=== PATIENT | female | born 1980 | race Caucasian/White ===

== ENCOUNTER 2024-01-05 16:41 | Emergency (ER) | payer MEDICARE ==
[2024-01-05 17:03] VITALS: TEMP 97.8
[2024-01-05 17:29] LABS: Absolute Neutrophil Ct (ANC) 4.14 x10^3/uL (1.56-6.13); BASOPHIL % 0.6 % (0.1-1.2); Basophil (Absolute #) 0.04 x10^3/uL (0.01-0.08); Eosinophil % 1.4 % (0.7-5.8); Eosinophil (Absolute #) 0.09 x10^3/uL (0.04-0.36); Hematocrit 33.1 % (34.1-44.9); Hemoglobin 10.1 g/dL (11.2-15.7); IMMATURE GRAN # 0.01 x10^3u/L (0.001-0.031); IMMATURE GRAN % 0.2 % (0.001-0.429); Lymphocyte (Absolute #) 1.67 x10^3/uL (1.18-3.74); Lymphocytes % 26.4 % (19.3-51.7); Mean Cell Volume 75.9 fL (79.4-94.8); Mean Corpuscular Hemoglobin 23.2 pg (25.6-32.2); Mean Corpuscular Hgb Concent. 30.5 g/dL (32.2-35.5); Monocyte (Absolute #) 0.37 x10^3/uL (0.24-0.86); Monocytes % 5.9 % (4.7-12.5); Neutrophil % 65.5 % (34.0-71.1); Platelet Count 260 x10^3/uL (182-369); Red Blood Count 4.36 x10^6/uL (3.93-5.22); Red Cell Distribution Width 15.9 % (11.7-14.4); White Blood Count 6.3 x10^3/uL (3.98-10.04)
[2024-01-05 17:33] LABS: HCG URINE TEST NEGATIVE (NEGATIVE)
--- NOTE | 2024-01-05 17:34 | ERPHSYRPT ---
- History of Present Illness Source: patient, family Exam Limitations: no limitations Patient Subjective Stated Complaint: Suicidal Ideation/Depression. Patient seen today for the first time as a new patient by INSPECTOR BICYCLE at [facility] for right hip pain. Patient filled out her initial depression screening there and her answers caused some concern with the INSPECTOR BICYCLE. Patient admitted to suicidal idea tion there. Patient left there and came to the ER here for evaluation on the recommendation of the INSPECTOR BICYCLE at [facility]. Triage Nursing Assessment: Patient ambulated back to ER without difficulties. She is alert and oriented; cooperative. Flat affect. NO SOB. Skin tone normal. Hx Tetanus, Diphtheria Vaccination/Date Given: Yes Hx Influenza Vaccination/Date Given: No Hx Pneumococcal Vaccination/Date Given: No Immunizations Up to Date: Yes <CJ BURNETT - Last Filed: 01/05/24 18:38> <SATYA DOUGHERTY - Last Filed: 01/06/24 01:48> - History of Present Illness Time Seen by Provider: 01/05/24 16:53 Physician History: Patient is here for suicidal ideation, depression. Patient was seen for the first time at [facility] for right hip pain. Patient recently moved here from [place] 4 weeks ago. On the depression screen she did screen positive and eventually admitted to suicidal ideation to the nurse practitioner [facility]. Therefore was sent here. Here she has a flat affect. States that she has seen a psychiatrist back in [place] but has not seen anybody here in [place]. Patient does admit to suicidal ideation today. States that she has attempted to hurt herself 4 times in the past. She is currently staying with a family friend. She has taken some but not all of her prescribed psych medication. No falls no trauma no chest pain no shortness of breath. (CJ BURNETT) Allergies/Adverse Reactions: Latex, Natural Rubber Allergy (Verified 01/05/24 16:59) Home Medications: Buspirone HCl 30 mg PO BID 01/05/24 [History] Chlorpromazine HCl 10 mg PO BID 01/05/24 [History] Duloxetine HCl [Cymbalta] 60 mg PO HS 01/05/24 [History] Gabapentin 600 mg PO BID 01/05/24 [History] Haloperidol [Haldol] 5 mg PO DAILY 01/05/24 [History] [place] Carbonate 150 mg PO DAILY 01/05/24 [History] Omeprazole 40 mg PO DAILY 01/05/24 [History] Prazosin HCl 10 mg PO HS 01/05/24 [History] Topiramate 50 mg PO BID 01/05/24 [History] Trazodone HCl 100 mg PO HS 01/05/24 [History] Travel Risk - International Travel Have you traveled outside of the country in past 3 weeks: No - Emerging Infectious Disease Are you exhibiting symptoms associated with any current EIDs: No <CJ BURNETT - Last Filed: 01/05/24 18:38> - Past Medical History Pertinent Past Medical History: Yes Neurological History: No Pertinent History ENT History: No Pertinent History Cardiac History: No Pertinent History Respiratory History: No Pertinent History Endocrine Medical History: Hypothyroidism Musculoskeletal History: No Pertinent History GI Medical History: GERD, Other History: No Pertinent History Psycho-Social History: Anxiety, Bipolar, Depression, Other Female Reproductive Disorders: No Pertinent History Other Medical History: gastroparesis, borderline personality disorder - Past Surgical History Past Surgical History: Yes Female Surgical History: Tubal Ligation Other Surgical History: sinus - Female History Hx Last Menstrual Period: Just got off of it Hx Now: No - Social History Smoking Status: Never smoker Exposure to second hand smoke: No Drug Use: marijuana - Social Determinants of Health Will the patient participate in the screening: Yes Do you worry about a steady place to live?: Yes Do you have any problems with any of the following?: No known problems In the past 12 months,have you had to go without utilities?: No Transportation Issues: No Has anyone in your support network made you feel unsafe?: No Have you or anyone in your house had to go without enough: No <CJ BURNETT - Last Filed: 01/05/24 18:38> - Physical Exam SpO2 Interpretation: normal SpO2: 96 <CJ BURNETT - Last Filed: 01/05/24 18:38> - Physical Exam General Appearance: no apparent distress, alert Eye Exam: PERRL/EOMI, eyes nml inspection Ears, Nose, Throat Exam: normal ENT inspection, pharynx normal, moist mucous membranes Neck Exam: normal inspection, non-tender, supple, full range of motion Respiratory Exam: normal breath sounds, lungs clear, airway intact, No respir atory distress Cardiovascular Exam: regular rate/rhythm, normal heart sounds, normal peripheral pulses Gastrointestinal/Abdomen Exam: soft, normal bowel sounds, No tenderness, No mass Back Exam: normal inspection, normal range of motion, vertebral tenderness, other (Tenderness to palpation lower back midline overlying soft tissue intact. No signs of trauma), No CVA tenderness Extremity Exam: normal inspection, normal range of motion, pelvis stable Neurologic Exam: alert, oriented x 3, cooperative, normal mood/affect, nml cerebellar function, nml station & gait, sensation nml, No motor deficits Skin Exam: normal color, warm, dry, No rash Lymphatic Exam: No adenopathy O2 Delivery: Room Air <SATYA DOUGHERTY - Last Filed: 01/06/24 01:48> - Nursing Vital Signs Nursing Vital Signs: Initial Vital Signs Temperature 97.8 F 01/05/24 16:55 Pulse Rate 76 01/05/24 16:55 Respiratory Rate 21 01/05/24 16:55 Blood Pressure 127/87 01/05/24 16:55 O2 Sat by Pulse Oximetry 96 01/05/24 16:55 Pain Scale Pain Intensity 0 - Physical Exam Comments: 01/05/24 17:33 Review of Systems Constitutional: Negative for fever. HENT: Negative for congestion. Respiratory: Negative for shortness of breath. Cardiovascular: Negative for chest pain. Gastrointestinal: Negative for abdominal pain. Genitourinary: Negative for dysuria. Musculoskeletal: Negative for back pain. Skin: Negative for rash. Neurological: Negative for headaches. Psychiatric/Behavioral: Suicidal ideation All other systems reviewed and are negative. Physical Exam Vitals signs and nursing note reviewed. Constitutional: Appearance: Patient is well-developed. HENT: Head: Normocephalic and atraumatic. Eyes: Conjunctiva/sclera: Conjunctivae normal. Neck: Musculoskeletal: Normal range of motion. Trachea: No tracheal deviation. Cardiovascular: Rate and Rhythm: Normal rate. Pulmonary: Effort: Pulmonary effort is normal. No respiratory distress. Abdominal: Palpations: Abdomen is soft. Musculoskeletal: General: No deformity. Skin: General: Skin is warm and dry. Neurological/ Psychiatric: Mental Status: Mental status, behavior, interaction with environment is appropriate for patient's age and condition. Suicidal ideation (CJ BURNETT) - Course Nursing assessment & vital signs reviewed: Yes <CJ BURNETT - Last Filed: 01/05/24 18:38> - CT Exams Lumbar Spine CT Interpretation: Tele-radiologist Report (No fracture or dislocation. Mild degenerative changes observed) <SATYA DOUGHERTY - Last Filed: 01/06/24 01:48> Ordered Tests: Active Orders 24 hr Category Date Time Status Clean Catch Urine Specimen STAT Care 01/05/24 17:04 Active POCT Glucose Check ONCE Care 01/05/24 17:00 Active ACO SDOH Referral ONCE Cons 01/05/24 17:27 Active Psychiatric Consult STAT Cons 01/05/24 17:00 Active LUMBAR SPINE W/O [CT] Stat Exams 01/05/24 21:46 Completed ACETAMINOPHEN Stat Lab 01/05/24 17:16 Completed CBC W DIFF Stat Lab 01/05/24 17:16 Completed CMP Stat Lab 01/05/24 17:16 Completed ETHYL ALCOHOL Stat Lab 01/05/24 17:16 Completed HCG QUALITATIVE, URINE Stat Lab 01/05/24 17:00 Completed SALICYLATE Stat Lab 01/05/24 17:16 Completed UA W/RFX UR CULTURE Stat Lab 01/05/24 17:00 Completed Urine Triage Profile Stat Lab 01/05/24 17:04 Completed Medication Summary Discontinued Medications Generic Name Dose Route Start Last Admin Trade Name Freq PRN Reason Stop Dose Admin Dexamethasone Sodium Phosphate 6 mg 01/05/24 21:45 01/05/24 21:57 Dexamethasone Sod Phosphate 10 Mg/Ml IM 01/05/24 21:46 6 mg STAT ONE Administration Dexamethasone Sodium Phosphate Confirm 01/05/24 21:54 Dexamethasone Sod Phosphate 10 Mg/Ml Administered 01/05/24 21:55 Dose 10 mg .ROUTE .STK-MED ONE Ketorolac Tromethamine 30 mg 01/05/24 21:45 01/05/24 21:57 Ketorolac Tromethamine 30 Mg/Ml Inj IM 01/05/24 21:46 30 mg STAT ONE Administration Ketorolac Tromethamine Confirm 01/05/24 21:54 Ketorolac Tromethamine 30 Mg/Ml Inj Administered 01/05/24 21:55 Dose 30 mg .ROUTE .STK-MED ONE Lab/Rad Data: Laboratory Result Diagrams 01/05/24 17:16 01/05/24 17:16 Laboratory Results 01/05/24 01/05/24 01/05/24 Range/Units 17:16 17:16 17:04 WBC 6.3 (3.98-10.04) x10^3/uL RBC 4.36 (3.93-5.22) x10^6/uL Hgb 10.1 L (11.2-15.7) g/dL Hct 33.1 L (34.1-44.9) % MCV 75.9 L (79.4-94.8) fL MCH 23.2 L (25.6-32.2) pg MCHC 30.5 L (32.2-35.5) g/dL RDW 15.9 H (11.7-14.4) % Plt Count 260 (182-369) x10^3/uL MPV 10.0 (9.4-12.3) fL Gran % 65.5 (34.0-71.1) % Immature Gran % (Auto) 0.2 (0.001-0.429) % Nucleat RBC Rel Count 0.0 (0.00-0.2) % Eos # (Auto) 0.09 (0.04-0.36) x10^3/uL Immature Gran # (Auto) 0.01 (0.001-0.031) x10^3u/L Absolute Lymphs (auto) 1.67 (1.18-3.74) x10^3/uL Absolute Monos (auto) 0.37 (0.24-0.86) x10^3/uL Absolute Nucleated RBC 0.00 (0.00-0.012) x10^3u/L Lymphocytes % 26.4 (19.3-51.7) % Monocytes % 5.9 (4.7-12.5) % Eosinophils % 1.4 (0.7-5.8) % Basophils % 0.6 (0.1-1.2) % Absolute Granulocytes 4.14 (1.56-6.13) x10^3/uL Basophils # 0.04 (0.01-0.08) x10^3/uL Sodium 139 (135-145) mmol/L Potassium 4.6 (3.5-5.1) mmol/L Chloride 108 H (98-107) mmol/L Carbon Dioxide 22 (22-30) mmol/L Anion Gap 14.5 (5-15) MEQ/L BUN 9 (7-17) mg/dL Creatinine 1.08 H (0.52-1.04) mg/dL Estimated GFR 65.8 ML/MIN Glucose 97 (74-106) mg/dL Calcium 9.5 (8.4-10.2) mg/dL Total Bilirubin 0.30 (0.2-1.3) mg/dL AST 18 (14-36) U/L ALT 16 (0-35) U/L Alkaline Phosphatase 62 (38-126) U/L Serum Total Protein 7.2 (6.3-8.2) g/dL Albumin 4.1 (3.5-5.0) g/dL Urine Color (Yellow) Urine Appearance (Clear) Urine pH (4.6-8.0) Ur Specific [place] (1.005-1.030) Urine Protein (Negative) Urine Glucose (UA) (Negative) mg/dL Urine Ketones (Negative) Urine Blood (Negative) Urine Nitrite (Negative) Urine Bilirubin (Negative) Urine Urobilinogen (0.2) mg/dL Ur Leukocyte Esterase (Negative) U Hyaline Cast (Auto) (0-2) /LPF Urine Microscopic RBC (0-5) /HPF Urine Microscopic WBC (0-5) /HPF Ur Epithelial Cells (None Seen) /HPF Urine Bacteria (None Seen) /HPF Urine Culture Reflexed (NO) Urine HCG, Qual (NEGATIVE) Salicylates < 1.0 L (2-20) mg/dL Urine Opiates Level NEGATIVE (NEGATIVE) Ur Methadone NEGATIVE (NEGATIVE) Acetaminophen < 10 L (10-30) ug/ml Urine Barbiturates NEGATIVE (NEGATIVE) Ur Phencyclidine (PCP) NEGATIVE (NEGATIVE) Urine Amphetamine NEGATIVE (NEGATIVE) U Benzodiazepine Level NEGATIVE (NEGATIVE) Urine Cocaine NEGATIVE (NEGATIVE) Urine Marijuana (THC) POSITIVE A (NEGATIVE) Ethyl Alcohol < 10 (0-10) mg/dL 01/05/24 01/05/24 Range/Units 17:00 17:00 WBC (3.98-10.04) x10^3/uL RBC (3.93-5.22) x10^6/uL Hgb (11.2-15.7) g/dL Hct (34.1-44.9) % MCV (79.4-94.8) fL MCH (25.6-32.2) pg MCHC (32.2-35.5) g/dL RDW (11.7-14.4) % Plt Count (182-369) x10^3/uL MPV (9.4-12.3) fL Gran % (34.0-71.1) % Immature Gran % (Auto) (0.001-0.429) % Nucleat RBC Rel Count (0.00-0.2) % Eos # (Auto) (0.04-0.36) x10^3/uL Immature Gran # (Auto) (0.001-0.031) x10^3u/L Absolute Lymphs (auto) (1.18-3.74) x10^3/uL Absolute Monos (auto) (0.24-0.86) x10^3/uL Absolute Nucleated RBC (0.00-0.012) x10^3u/L Lymphocytes % (19.3-51.7) % Monocytes % (4.7-12.5) % Eosinophils % (0.7-5.8) % Basophils % (0.1-1.2) % Absolute Granulocytes (1.56-6.13) x10^3/uL Basophils # (0.01-0.08) x10^3/uL Sodium (135-145) mmol/L Potassium (3.5-5.1) mmol/L Chloride (98-107) mmol/L Carbon Dioxide (22-30) mmol/L Anion Gap (5-15) MEQ/L BUN (7-17) mg/dL Creatinine (0.52-1.04) mg/dL Estimated GFR ML/MIN Glucose (74-106) mg/dL Calcium (8.4-10.2) mg/dL Total Bilirubin (0.2-1.3) mg/dL AST (14-36) U/L ALT (0-35) U/L Alkaline Phosphatase (38-126) U/L Serum Total Protein (6.3-8.2) g/dL Albumin (3.5-5.0) g/dL Urine Color Yellow (Yellow) Urine Appearance Clear (Clear) Urine pH 6.0 (4.6-8.0) Ur Specific [place] 1.015 (1.005-1.030) Urine Protein Negative (Negative) Urine Glucose (UA) Negative (Negative) mg/dL Urine Ketones Negative (Negative) Urine Blood Negative (Negative) Urine Nitrite Negative (Negative) Urine Bilirubin Negative (Negative) Urine Urobilinogen 0.2 (0.2) mg/dL Ur Leukocyte Esterase Negative (Negative) U Hyaline Cast (Auto) NONE SEEN (0-2) /LPF Urine Microscopic RBC 0-2 (0-5) /HPF Urine Microscopic WBC 3-5 (0-5) /HPF Ur Epithelial Cells Few (None Seen) /HPF Urine Bacteria Few A (None Seen) /HPF Urine Culture Reflexed NO (NO) Urine HCG, Qual NEGATIVE (NEGATIVE) Salicylates (2-20) mg/dL Urine Opiates Level (NEGATIVE) Ur Methadone (NEGATIVE) Acetaminophen (10-30) ug/ml Urine Barbiturates (NEGATIVE) Ur Phencyclidine (PCP) (NEGATIVE) Urine Amphetamine (NEGATIVE) U Benzodiazepine Level (NEGATIVE) Urine Cocaine (NEGATIVE) Urine Marijuana (THC) (NEGATIVE) Ethyl Alcohol (0-10) mg/dL - Progress Progress: improved Counseled pt/family regarding: lab results, diagnosis, need for follow-up <CJ BURNETT - Last Filed: 01/05/24 18:38> <SATYA DOUGHERTY - Last Filed: 01/06/24 01:48> - Progress Progress Note: 01/05/24 17:34 Plan for behavioral psych consult and psychiatric labs. Patient was likely will need inpatient psychiatric placement tonight. 01/05/24 18:39 Labs have returned negative, psychiatric evaluation placed in the computer. Transfer of care to Dr. Dougherty at 7 PM. He will follow-up on recommendations, reevaluate patient. Anticipate inpatient placement for psych. (CJ BURNETT) 43-year-old female presents to our ED for evaluation of suicidal ideation. Patient was in the clinic for her chronic low back pain. Patient advised her provider that she had suicidal thoughts. Patient was sent to our ED. Patient seen by Dr. Burnett. Patient medically cleared. While in our ED patient advised she was having back pain. She states she had never had imaging of her back. Physical exam reveals some tenderness along her lumbar paraspinal midline area. Overlying soft tissue was intact. CT scan lumbar spine was performed. De generative disease observed. Bulging disks observed. Otherwise no acute findings. Patient received Toradol and Decadron for pain control. Pain significantly improved. A prescription for Toradol forwarded to patient's pharmacy. Patient resting comfortably without any complaints. Patient voices no other complaints or concerns at this time. Portions of this note were created with voice recognition technology. There may be grammatical, spelling, punctuation or sound alike errors Accepting physicianchayito Romero Complexity of problem addressed is moderate acute complicated. No critical care time. Complex of data reviewed and analyzed is extensive test ordered test reviewed results analyzed and correlated clinically with history and physical exam. Risk of complication and or risk of morbidity/mortality patient management is high. Patient requires hospitalization/transfer to higher level of care vital stable. Time spent to transfer patient approximately 20 minutes. Plan of care established for shared decision making. No social determinants of health present to impede follow-up. Portions of this note were created with voice recognition technology. There may be grammatical, spelling, punctuation or sound alike errors 01/06/24 01:39 (SATYA DOUGHERTY) - Departure Critical Care Time: No <CJ BURNETT - Last Filed: 01/05/24 18:38> - Departure Departure Disposition: Transfer <SATYA DOUGHERTY - Last Filed: 01/06/24 01:48> - Departure Clinical Impression: Suicidal ideation, Bulging disc, Cervical spine arthritis, Sciatica Condition: Stable Referrals: DOCTOR,NO FAMILY [Primary Care Provider] - Follow up/PCP as directed VINCENT MOJICA MD [ACTIVE STAFF] - Follow up/PCP as directed Additional Instructions: Discharge/Care Plan CAROLYNN WRAY was seen on 01/06/24 in the Emergency Room. The patient was counseled regarding Diagnosis,Lab results, Imaging studies, need for follow up and when to return to the Emergency Room. Prescriptions given: Discharge Note I have spoken with the patient and/or caregivers. I have explained the patient's condition, diagnosis and treatment plan based on the information available to me at this time. I have answered the patient's and/or caregiver's questions and addressed any concerns. The patient and/or caregivers have as good understanding of the patient's diagnosis, condition and treatment plan as can be expected at this point. The vital signs have been stable. The patient's condition is stable and appropriate for discharge from the emergency department. The patient will pursue further outpatient evaluation with the primary care physician or other designated or consulting physician as outlined in the discharge instructions. The patient and/or caregivers are agreeable to this plan of care and follow-up instructions have been explained in detail. The patient and/or caregivers have received these instruction. The patient/and or caregivers are aware that any significant change in condition or worsening of symptoms should prompt an immediate return to this or the closest emergency department or call 911. Prescriptions: Ketorolac Trometh 10 mg Tab [TORAdol 10 MG TABLET] 10 mg PO TID 5 Days #15 tablet
[2024-01-05 17:39] LABS: ADD URINE CULTURE? NO (NO); Appearance Clear (Clear); Bacteria Few /HPF (None Seen); Bilirubin Negative (Negative); Blood Negative (Negative); Epithelial Cells Few /HPF (None Seen); Glucose, Urine Negative (Negative); Hyaline Casts NONE SEEN /LPF (0-2); Ketones Negative (Negative); Leukocyte Esterase Negative (Negative); Nitrite Negative (Negative); Protein,Urine Dip Negative (Negative); RBC 0-2 /HPF (0-5); Specific Gravity 1.015 (1.005-1.030); Urobilinogen 0.2 mg/dL (0.2)
[2024-01-05 17:43] LABS: ACETAMINOPHEN < 10 ug/ml (10-30); ALBUMIN 4.1 g/dL (3.5-5.0); ALKALINE PHOSPHATASE 62 U/L (38-126); ANION GAP 14.5 MEQ/L (5-15); BLOOD UREA NITROGEN 9 mg/dL (7-17); CHLORIDE 108 mmol/L (98-107); Calcium 9.5 mg/dL (8.4-10.2); Carbon Dioxide 22 mmol/L (22-30); Creatinine 1 1.08 mg/dL (0.52-1.04); EST GLOMERULAR FILTRATION RATE 65.8 ML/MIN; ETHYL ALCOHOL < 10 mg/dL (0-10); Glucose 97 mg/dL (74-106); Potassium 4.6 mmol/L (3.5-5.1); SALICYLATE < 1.0 mg/dL (2-20); SGOT/AST 18 U/L (14-36); SGPT/ALT 16 U/L (0-35); SODIUM 139 mmol/L (135-145); Total Protein 7.2 g/dL (6.3-8.2)
[2024-01-05 17:52] LABS: Amphetamine,Urine NEGATIVE (NEGATIVE); Barbiturate,Urine NEGATIVE (NEGATIVE); Benzodiazepine,Urine NEGATIVE (NEGATIVE); Cocaine,Urine NEGATIVE (NEGATIVE); Methadone,Urine NEGATIVE (NEGATIVE); Opiate,Urine NEGATIVE (NEGATIVE); PCP,Urine NEGATIVE (NEGATIVE); THC,Urine POSITIVE (NEGATIVE)
[2024-01-05] MEDS ORDERED: DECADRON 10MG INJ. ONE (21:54)
[2024-01-05] MEDS ORDERED: TORAdol 30 mg Injection ONE (21:54)
[2024-01-05] MEDS: TORAdol 30 mg Injection IM ONE (21:57)
[2024-01-05] MEDS: DECADRON 10MG INJ. IM ONE (21:57)
--- NOTE | 2024-01-05 23:00 | XRAY ---
CLINICAL HISTORY: pain COMPARISON: - TECHNIQUE: Multiple contiguous axial images were obtained through the lumbar spine without IV contrast. Sagittal and coronal reformatted images were obtained from the axial data. CT scan was performed according to ALARA (as low as reasonably achievable. FINDINGS: Loss of normal lumbar lordosis. Small anterior osteophytes are seen at multiple levels. Lumbar vertebral bodies are maintained in height and alignment. No vertebral destructive changes are seen. T11-T12: Evaluated on sagittal images only. No disc bulge, canal stenosis or neural foraminal narrowing. Subarticular recesses are patented. T12-L1: Evaluated on sagittal images only. No disc bulge, canal stenosis or neural foraminal narrowing. Subarticular recesses are patented. L1-L2: No disc bulge, canal stenosis or neural foraminal narrowing. Subarticular recesses are patented. L2-L3: No disc bulge, canal stenosis or neural foraminal narrowing. Subarticular recesses are patented. L3-L4: No disc bulge, canal stenosis or neural foraminal narrowing. Subarticular recesses are patented. L4-L5: Diffuse disc bulge withiut nerve root compression. Subarticular recesses are patented. L5-S1: Diffuse disc bulge withiut nerve root compression.Subarticular recesses are patented. Paravertebral soft tissues are unremarkable. IMPRESSION: 1. No fracture seen in the lumbar spine 2. Mild degenerative changes in the lumbar spine Electronically Signed by: Luis Carlos Liang MD. (01/05/2024 22:57:04 EDT)
[2024-01-06 00:06] VITALS: RESP 23
[2024-01-06 01:04] VITALS: BP 129/84; PULSE 82; O2SAT 97
== END 2024-01-06 01:53 | disposition short-term general hospital (02) ==
LOC: ED 16:41
DX: R45.851 Suicidal ideations (principal); M51.36 Other intervertebral disc degeneration, lumbar region; M47.812 Spondylosis without myelopathy or radiculopathy, cervical region; M54.30 Sciatica, unspecified side; F32.A Depression, unspecified; Z79.899 Other long term (current) drug therapy; Z59.00 Homelessness unspecified
CPT/HCPCS: 36415; 72131; 80053; 80143; 80179; 80307; 81001; 81025; 82077; 85025; 96372; 99285; Q3014; 90791; J1100; J1885